=== PATIENT | male | born 2000 | race Caucasian/White ===

== ENCOUNTER 2019-08-29 23:48 | Emergency (ER) | payer OTHER ==
[~2019-08-29] VITALS: Ht 180.3 cm; Wt 87.5 kg
[2019-08-29 23:54] VITALS: Ht 180.3 cm; Wt 87.5 kg
[2019-08-30 04:32] VITALS: BP 145/85
== END 2019-08-30 04:32 | disposition home or self-care (01) ==
LOC: ED 23:48
DX: L60.0 Ingrowing nail (principal)
CPT/HCPCS: J2001